=== PATIENT | female | born 1965 | race Caucasian/White ===

== ENCOUNTER 2024-05-03 22:42 | Emergency (ER) | payer OTHER, SELFPAY ==
[2024-05-03 22:47] VITALS: BP 111/70
[2024-05-03 23:13] VITALS: BMI 21.0
[2024-05-03 23:17] VITALS: BP 116/63
--- NOTE | 2024-05-03 23:20 | ED.GENMED ---
History of Present Illness
General
Chief Complaint: Allergic Reaction
Source: patient
Exam Limitations: none
Time Seen by Provider: 05/03/24 23:10
History of Present Illness
History of Present Illness:
This is a 58 year old female that comes in with c/o hives. States that she awoke this morning with a hive on the back of her leg. States that she thought it was a mosquito bite. Then it just started to spread. States that she know has hives all
over. States that they are itching. Denies any new soaps, lotions or detergents. Denies any fever, chills, chest pain, SOB, abd pain, nausea, vomiting, diarrhea, headache, dizziness, urinary burning.
Past History
Past History
ED Past Medical History: Arrthythmia (PVC's) and Hypothyroidism
ED Past Surgical History: Gynecological (Uterine Fibroid, D&C)
Social History
Tobacco: Non-smoker
Alcohol: None
Personal:
Living: with family
Review of Systems
Review of Systems
All Other Systems: ROS reviewed and negative except as documented in HPI and ROS
Constitutional: Reports no symptoms; Denies fever or chills
EENT: Reports no symptoms
Respiratory: Reports no symptoms; Denies cough or trouble breathing
Cardiac: Reports no symptoms; Denies chest pain
ABD/GI: Reports no symptoms; Denies abdominal pain, nausea, vomiting or diarrhea
: Reports no symptoms; Denies dysuria, frequency or urgency
Musculoskeletal: Reports no symptoms
Skin: Reports no symptoms
Neurological: Reports no symptoms; Denies dizzy or headache
Psychiatric: Reports no symptoms
Phy Exam
General Physical Exam
General Presentation: no apparent distress
General age: appears stated age
General Skin: warm and dry
General Habitus: normal
General Mental: alert
General Hydration: appears well hydrated
ENT Exam
ENT Exam: TM's normal, pharynx normal and neck supple
Eye Exam
Eye Exam: EOMI
Cardiovascular Exam
Cardiovascular Exam: regular rate/rhythm, no edema, no murmur and normal peripheral pulses
Pulmonary Exam
Pulmonary Exam: lungs clear, no respiratory distress, no rales, chest non tender, no crackles, no rhonchi, no wheezing and no cough
Gastrointestinal Exam
Gastrointestinal Exam: normal bowel sounds, non tender, soft, no organomegaly, no pulsatile mass and non distended
Musculoskeletal Exam
Musculoskeletal Exam: full ROM and no edema
Skin Exam
Skin Exam: normal color, warm/dry, no petechia and other (Hives noted on the hand, arms. Upper chest, back, forearms. flanks)
Psychiatric Exam
Psychiatric Exam: normal mood/affect
Course
Orders/Labs/Results
Orders:
Orders
05/03/24 23:19
Dexamethasone Sod Phosphate [Decadron] 10 mg IV NOW STA
Diphenhydramine [Benadryl] 25 mg IV NOW STA
Famotidine [Pepcid] 20 mg IV NOW STA
Vital Signs
Initial and Last Documented VS:
Initial Vital Signs
Temp Pulse Resp BP Pulse Ox
97.8 F 64 20 111/70 98
05/03/24 22:47 05/03/24 22:47 05/03/24 22:47 05/03/24 22:47 05/03/24 22:47
Last Documented Vital Signs
Temp Pulse Resp BP Pulse Ox
97.8 F 64 19 116/63 94
05/03/24 22:47 05/03/24 23:17 05/03/24 23:17 05/03/24 23:17 05/03/24 23:17
MDM/Problems Addressed
Differential Diagnosis Includes:
Contact dermatitis, hives
MDM/Problems Addressed:
This is a 58 year old female that comes in with c/o hives. States that this started this morning and has continued to get worse.
Will medication with steroid, Pepcid and Benadryl and recheck.
Back into see patient. Some of the redness has decreased. Hives still noted. Will place patient on steroid for the next few days. Patient can use Pepcid which is over the counter to decrease the histamine release and Benadryl as needed for itch.
Patient to follow up with the family doctor and possible an physician assistant certified. Return with any concerns.
Chronic conditions affecting care:
NA
Acute Exacerbation and/or Progression of Chronic Illness:
NA
*Pulse Oximetry
Patient hypoxic: no
*EKG
Interpreted by ED Provider?: NA
Rate: EKG- N/A
*Offset Plate Maker Interpretation
Rate: normal
Heart Rate: 62
Rhythm: sinus
*Critical Care Note
Total Time (30-74mins, 75-104mins- exclusive of procedures): Not Applicable
ED Attending Note
-
Portions of this chart may have been created with voice recognition software.� Occasional wrong word or��sound alike� substitutions may have occurred due to the inherent limitations of voice recognition software.
Discharge Plan
Departure
Patient Disposition: Home (Routine Discharge)
Date of Disposition: 05/04/24
Time of Disposition: 00:15
Patient with high blood pressure during this ER visit?: No
Condition: Good
Covid-19: Not Applicable
Discharge Problem:
Hives
Instructions: Hives (DC)
Prescriptions:
New
prednisone 20 mg tablet
40 mg PO DAILY Qty: 8 0RF
No Action
levothyroxine 50 mcg Capsule
50 mcg PO DAILY
Referrals:
S[facility] POND [Other] - Follow up in 2-3 days
Activity Restrictions/Additional Instructions:
As discussed, it is hard to say what your hives are from. You have been given IV steroids here and a prescription for steroids has been sent to your pharmacy. Please take Pepcid 20mg daily which is over the counter to help decrease the histamine
release. You may also regan Benadryl 50mg every 6 hours for the itch. Follow up with the family doctor for recheck. You may also want to follow up with an physician assistant certified. IF YOU HAVE ANY SHORTNESS OF BREATH, OR YOU HAVE ANY OTHER CONCERNS PLEASE RETURN TO
THE EMERGENCY ROOM.
Interventions
Interventions:
*Risk Screen - Suicide Last Done: 05/03/24 22:47
*General Assessment Last Done: 05/03/24 22:47
*Neglect/Abuse Screening Last Done: 05/03/24 22:47
ED- Fall Risk Assessment Last Done: 05/03/24 22:47
*ED COVID-19 Vaccine History Last Done: 05/03/24 22:47
ED- Cardiac Assessment Last Done: 05/03/24 23:21
ED- Pulmonary Assessment Last Done: 05/03/24 23:21
ED-Skin Assessment Last Done: 05/03/24 23:21
Discharge Date and Time
Print Language: [id number]
[2024-05-03] MEDS: BENADRYL 25 MG IV (23:27)
[2024-05-03] MEDS: PEPCID 20 MG IV (23:29)
[2024-05-03] MEDS: DECADRON 10 MG IV (23:30)
[2024-05-04] VITALS: BP 107/69
== END 2024-05-04 00:40 | disposition home or self-care (01) ==
LOC: EMR 22:42
PROVIDERS: EMERGENCY PHYSICIAN Student in an Organized Health Care Education/Training Program
DX: L50.0 Allergic urticaria (principal); I49.3 Ventricular premature depolarization; E03.9 Hypothyroidism, unspecified
CPT/HCPCS: 99282; 96374; 96375